=== PATIENT | male | born 1960 | race Hispanic/Latino ===

== ENCOUNTER → 2023-04-07 08:42 | Outpatient (CLI) | payer BC, SELFPAY | PROVIDERS: Referring Provider Neuromusculoskeletal Medicine & OMM; Visit Provider Physician Assistant | DX: E11.622 Type 2 diabetes mellitus with other skin ulcer (principal); L97.812 Non-pressure chronic ulcer of other part of right lower leg with fat layer exposed; L03.115 Cellulitis of right lower limb; I87.2 Venous insufficiency (chronic) (peripheral); M79.604 Pain in right leg; R60.0 Localized edema; L53.9 Erythematous condition, unspecified | CPT/HCPCS: 11042; 36415; 83036; 99204; 99213 ==

== ENCOUNTER → 2023-04-07 10:30 | Outpatient (CLI) | payer BC, SELFPAY ==
[2023-04-07 10:52] LABS: Hemoglobin A1C% w Est Avg Glu 11.7 % (4.0-6.0)
== END ==
PROVIDERS: Referring Provider Physician Assistant; Visit Provider Physician Assistant
DX: E11.9 Type 2 diabetes mellitus without complications (principal)
CPT/HCPCS: 36415; 83036

== ENCOUNTER → 2023-04-14 10:54 | Outpatient (CLI) | payer BC, SELFPAY | PROVIDERS: Referring Provider Neuromusculoskeletal Medicine & OMM; Visit Provider Physician Assistant | DX: E11.621 Type 2 diabetes mellitus with foot ulcer (principal); L97.812 Non-pressure chronic ulcer of other part of right lower leg with fat layer exposed; L03.115 Cellulitis of right lower limb; R60.0 Localized edema | CPT/HCPCS: 11042; 99214 ==

== ENCOUNTER → 2023-04-28 09:16 | Outpatient (CLI) | payer BC, SELFPAY | PROVIDERS: Referring Provider Neuromusculoskeletal Medicine & OMM; Visit Provider Surgery | DX: E11.9 Type 2 diabetes mellitus without complications (principal) | CPT/HCPCS: 99213 ==